=== PATIENT | male | born 1995 | race Caucasian/White ===

== ENCOUNTER 2019-08-02 23:38 | Emergency (ER) | payer BC ==
[2019-08-03 00:10] VITALS: BP 122/83; PULSE 78; RESP 18; TEMP 98.2
[2019-08-03] MEDS ORDERED: DIPH,PERTUS(ACELL)TETVAC-LF 0.5 ML VIAL IM ONE (00:48)
--- NOTE | 2019-08-03 00:49 | ED ---
Wound/Laceration HPI - General Chief Complaint: Wound/Laceration Stated Complaint: Lt finger laceration Time Seen by Provider: 08/03/19 00:30 Source: patient Mode of arrival: ambulatory Limitations: no limitations - History of Present Illness Initial Comments: 23-year-old male patient presents to the emergency department today for evaluation of laceration to the right index finger. Patient states he was cooking when he slipped and cut his knuckle with a knife. Patient is unsure when his last tetanus vaccine was given. He was able to get the bleeding under control. Patient denies any difficulty with range of motion to the finger. Denies any numbness or tingling. Denies any other injuries. - Related Data Allergies Allergy/AdvReac Type Severity Reaction Status Date / Time No Known Allergies Allergy Verified 08/03/19 00:09 Review of Systems ROS Statement: Those systems with pertinent positive or pertinent negative responses have been documented in the HPI. ROS Other: All systems not noted in ROS Statement are negative. Past Medical History Past Medical History: No Reported History History of Any Multi-Drug Resistant Organisms: None Reported Past Surgical History: No Surgical Hx Reported Past Psychological History: Schizophrenia Smoking Status: Never smoker Past Alcohol Use History: None Reported Past Drug Use History: None Reported General Exam Limitations: no limitations General appearance: alert, in no apparent distress, other (This is a well- developed, well-nourished adult male patient in no acute distress. Vital signs upon presentation are temperature 98.2F, pulse 78, respirations 18, blood pressure 122/83, pulse ox 99% on room air.) ENT exam: Present: normal exam, normal oropharynx, mucous membranes moist Respiratory exam: Present: normal lung sounds bilaterally. Absent: respiratory distress, wheezes, rales, rhonchi, stridor Cardiovascular Exam: Present: regular rate, normal rhythm, normal heart sounds. Absent: systolic murmur, diastolic murmur, rubs, gallop, clicks Extremities exam: Present: full ROM, normal capillary refill, other (Patient had skin of the avulsion injury to the right index finger over the PIP joint. Breathing is controlled. The patient is full range of motion. Skin is otherwise pink, warm, dry. Cap refills less than 3 seconds. Radial pulses 2+ and equal bilaterally.). Absent: normal inspection, tenderness, pedal edema, joint swelling, calf tenderness Neurological exam: Present: alert, oriented X3, CN II-XII intact Psychiatric exam: Present: normal affect, normal mood Skin exam: Present: warm, dry, intact, normal color. Absent: rash Course Vital Signs 08/03/19 00:06 Temperature 98.2 F Pulse Rate 78 Respiratory 18 Rate Blood Pressure 122/83 O2 Sat by Pulse 99 Oximetry Medical Decision Making - Medical Decision Making 23-year-old male patient presented to the emergency department today for evaluation of laceration to the right index finger. Physical examination did reveal an avulsion type injury over the PIP joint on the right index finger. Bleeding is under control. Patient is neurovascularly intact. Wound was cleansed and dressed by nursing staff. We did update tetanus vaccine. He'll be discharged to follow-up with his primary care physician for recheck in 1-2 days. Return parameters were discussed in detail. He verbalizes understanding and agrees with this plan. Disposition Clinical Impression: Avulsion of skin of finger Disposition: HOME SELF-CARE Condition: Good Instructions (If sedation given, give patient instructions): Skin Avulsion (ED) Additional Instructions: Keep wound clean and dry. Keep covered while working. Monitor for signs of infection including but not limited to redness, swelling, drainage of pus, fever, or chills. Return to the emergency department immediately for any new, worsening, or concerning symptoms. Is patient prescribed a controlled substance at d/c from ED?: No Referrals: None,Stated [Primary Care Provider] - 1-2 days Time of Disposition: 00:49
== END 2019-08-03 01:05 | disposition home or self-care (01) ==
LOC: EC 23:38
DX: S61.210A Laceration without foreign body of right index finger without damage to nail, initial encounter (principal); Z23 Encounter for immunization; W01.118A Fall on same level from slipping, tripping and stumbling with subsequent striking against other sharp object, initial encounter; Y93.G3 Activity, cooking and baking
CPT/HCPCS: 90471; 90715; 99282

== ENCOUNTER 2023-08-25 17:24 | Emergency (ER) | payer BC, OTHER ==
[2023-08-25 17:39] VITALS: TEMP 98
[2023-08-25] MEDS ORDERED: ACETAMINOPHEN TAB 500 MG TAB PO STA (20:49)
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
[2023-08-25 23:29] VITALS: BP 128/61; PULSE 94; RESP 17
== END 2023-08-25 23:19 | disposition home or self-care (01) ==
LOC: EC 17:24
DX: M25.511 Pain in right shoulder (principal); V18.0XXA Pedal cycle driver injured in noncollision transport accident in nontraffic accident, initial encounter; Y93.55 Activity, bike riding
CPT/HCPCS: 70450; 72125; 72131; 99284

== ENCOUNTER 2024-04-11 12:39 | Emergency (ER) | payer BC ==
--- NOTE | 2024-04-11 13:04 | ED ---
ENT HPI - General Chief complaint: ENT Stated complaint: Pain in R side of jaw Time Seen by Provider: 04/11/24 12:58 Source: patient, RN notes reviewed Mode of arrival: ambulatory Limitations: no limitations - History of Present Illness Initial comments: This is a 28-year-old male presents emergency department chief complaint of right-sided jaw pain. Patient states that yesterday evening he was playing dungeons and dragons where he creates a lot of focal sounds when he opened his jaw on felt a popping sensation. Patient states that he has pain in his chest at this time. He denies difficulty chewing, paresthesias, tenderness, decrease in hearing. He denies dental pain, pain with movement, nausea, vomiting, fevers. That he took 2 Tylenol this morning which aided in some relief. - Related Data Previous Rx's Medication Instructions Recorded Ibuprofen [Motrin] 600 mg PO Q8HR PRN #30 tab 04/11/24 Allergies Allergy/AdvReac Type Severity Reaction Status Date / Time No Known Allergies Allergy Verified 04/11/24 12:43 Review of Systems ROS Statement: Those systems with pertinent positive or pertinent negative responses have been documented in the HPI. ROS Other: All systems not noted in ROS Statement are negative. Past Medical History Past Medical History: No Reported History History of Any Multi-Drug Resistant Organisms: None Reported Past Surgical History: No Surgical Hx Reported Past Psychological History: Schizophrenia Smoking Status: Never smoker Past Alcohol Use History: Occasional Past Drug Use History: None Reported General Exam Limitations: no limitations General appearance: alert, in no apparent distress Head exam: Present: atraumatic, normocephalic, normal inspection Eye exam: Present: normal appearance, PERRL, EOMI. Absent: scleral icterus, conjunctival injection, periorbital swelling ENT exam: Present: normal exam, mucous membranes moist, other (Pain at the right TMJ, no crepitus or malalignment) Neck exam: Present: normal inspection. Absent: tenderness, meningismus, lymphadenopathy Respiratory exam: Present: normal lung sounds bilaterally. Absent: respiratory distress, wheezes, rales, rhonchi, stridor Cardiovascular Exam: Present: regular rate, normal rhythm, normal heart sounds. Absent: systolic murmur, diastolic murmur, rubs, gallop, clicks GI/Abdominal exam: Present: soft, normal bowel sounds. Absent: distended, t enderness, guarding, rebound, rigid Extremities exam: Present: normal inspection, full ROM, normal capillary refill. Absent: tenderness, pedal edema, joint swelling, calf tenderness Back exam: Present: normal inspection Neurological exam: Present: alert, oriented X3, CN II-XII intact Psychiatric exam: Present: normal affect, normal mood Skin exam: Present: warm, dry, intact, normal color. Absent: rash Course Vital Signs 04/11/24 04/11/24 12:41 13:50 Temperature 98.4 F 97.9 F Pulse Rate 70 86 Respiratory 16 18 Rate Blood Pressure 133/90 146/80 O2 Sat by Pulse 97 97 Oximetry Medical Decision Making - Medical Decision Making Was pt. sent in by a medical professional or institution (, PA, DOG BARBER, urgent care, hospital, or fci...) When possible be specific @ -No Did you speak to anyone other than the patient for history (EMS, parent, family, police, friend...)? What history was obtained from this source @ -No Did you review nursing and triage notes (agree or disagree)? Why? @ -I reviewed and agree with nursing and triage notes Were old charts reviewed (outside hosp., previous admission, EMS record, old EKG, old radiological studies, urgent care reports/EKG's, fci records)? Report findings @ -No old charts were reviewed Differential Diagnosis (chest pain, altered mental status, abdominal pain women, abdominal pain men, vaginal bleeding, weakness, fever, dyspnea, syncope, headache, dizziness, GI bleed, back pain, seizure, CVA, palpatations, mental health, musculoskeletal)? @ -TMJ pain, overuse of jaw, sprain, this list is not all inclusive EKG interpreted by me (3pts min.). @ -None X-rays interpreted by me (1pt min.). @ -None done CT interpreted by me (1pt min.). @ -None done U/S interpreted by me (1pt. min.). @ -None done What testing was considered but not performed or refused? (CT, X-rays, U/S, labs)? Why? @ -History was considered but deferred at this time due to patient's physical exam benign, patient is in agreement with this. What meds were considered but not given or refused? Why? @ -None Did you discuss the management of the patient with other professionals (professionals i.e. DrDulce, PA, DOG BARBER, lab, RT, psych nurse, social media marketing analyst, chart collector, teacher, police officer crime prevention, bilingual patient support caseworker)? Give summary @ -No Was smoking cessation discussed for >3mins.? @ -No Was critical care preformed (if so, how long)? @ -No Were there social determinants of health that impacted care today? How? (Homelessness, low income, unemployed, alcoholism, drug addiction, transportation, low edu. Level, literacy, decrease access to med. care, retirement, rehab)? @ -No Was there de-escalation of care discussed even if they declined (Discuss DNR or withdrawal of care, Hospice)? DNR status @ -No What co-morbidities impacted this encounter? (DM, HTN, Smoking, COPD, CAD, Cancer, CVA, ARF, Chemo, Hep., AIDS, mental health diagnosis, sleep apnea, morbid obesity)? @ -None Was patient admitted / discharged? Hospital course, mention meds given and route, prescriptions, significant lab abnormalities, going to OR and other pertinent info. @ -28-year-old male with right-sided jaw pain. On examination patient jaw noted to be aligned, no crepitus on movement or malalignment. Discussion that symptoms are likely secondary to a sprain or overuse. He will be provided with a shot of Toradol here and a prescription for Motrin as needed. Recommend the patient uses warm compresses. Return parameters discussed with the patient. Stable for discharge. Case discussed with Dr. Fajardo Undiagnosed new problem with uncertain prognosis? @ -No Drug Therapy requiring intensive monitoring for toxicity (Heparin, Nitro, Insulin, Cardizem)? @ -No Were any procedures done? @ -No Diagnosis/symptom? @ -jaw pain Acute, or Chronic, or Acute on Chronic? @ -Acute Uncomplicated (without systemic symptoms) or Complicated (systemic symptoms)? @ -uncomplicated Side effects of treatment? @ -No Exacerbation, Progression, or Severe Exacerbation? @ -No Poses a threat to life or bodily function? How? (Chest pain, USA, [place], pneumonia, PE, COPD, DKA, ARF, appy, cholecystitis, CVA, Diverticulitis, Homicidal, Suicidal, threat to staff... and all critical care pts) @ -No Disposition Clinical Impression: Jaw pain Narrative: Return to the emergency department symptoms worsen or not improve. Take ibuprofen as needed for pain. Use warm compresses. Disposition: HOME SELF-CARE Condition: Good Prescriptions: Ibuprofen [Motrin] 600 mg PO Q8HR PRN #30 tab PRN Reason: Pain Is patient prescribed a controlled substance at d/c from ED?: No Referrals: None,Stated [Primary Care Provider] - 1-2 days Time of Disposition: 13:12
[2024-04-11] MEDS: KETOROLAC 15 MG/ML 1 ML VIAL IM STA (13:21)
[2024-04-11 14:08] VITALS: BP 146/80; PULSE 86; RESP 18; TEMP 97.9
== END 2024-04-11 14:17 | disposition home or self-care (01) ==
LOC: EC 12:39
DX: R68.84 Jaw pain (principal)
CPT/HCPCS: 99283; 96372; J1885

== ENCOUNTER 2024-07-03 15:01 | Emergency (ER) | payer OTHER ==
[2024-07-03] MEDS ORDERED: ACETAMINOPHEN TAB 325 MG TAB ONE (15:56)
--- NOTE | 2024-07-26 14:34 | CT ---
[id number] NICOL MARIE : 1995 EXAM:? CT brain without contrast. CT facial bone. DATE: 07/03/2024 INDICATION: Eye injury. COMPARISON: None, please note PACS downtime occurred during the radiologist interpretation of these i mages with limited priors/reports.. TECHNIQUE: Multiple axial CT images of the brain were obtained without IV contrast. One or more CT do se reduction strategies were utilized during this examination. Total DLP administered was 1402 mGycm. ? TECHNIQUE: Multiple unenhanced axial CT images were obtained of the facial bones soft tissue and bone windows.? Coronal, axial and sagittal reformatted images were also provided in soft tissue and bone windows and submitted for interpretation.? Additional 3-D reformatted images were obtained on a [employer] workstation.? FINDINGS: Extra-axial spaces: No abnormal extra-axial fluid collections. Ventricular system: Within normal limits Cerebral parenchyma: No acute intraparenchymal hemorrhage or mass effect.? The angel-white junction is well differentiated.? Cerebellum: Unremarkable. Mass effect: No evidence of midline shift. Intracranial vasculature: unremarkable Soft tissues: Normal. Calvarium/osseous structures: No depressed skull fracture. Paranasal sinuses and mastoid air cells: Clear. Visualized orbits: Orbital contents are intact. The globes are intact. The intraconal fat are maintai amy. No radiopaque foreign body. FINDINGS: There is no evidence of fracture, subluxation, dislocation, or significant soft tissue swelling. The orbital contents are unremarkable. The temporal-mandibular joints appear symmetric. The visualized po rtion of the paranasal sinuses appear clear.?? Calcification within the left submandibular gland measuring 6 x 4 mm. IMPRESSION: 1. No acute intracranial process. 2. No evidence for injury to the globes. The orbits are intact. No fractures. No radiopaque foreign bodies. 3. Calcification within the left submandibular gland. 4. No acute intracranial hemorrhage, mass effect, or midline shift is seen.
== END 2024-07-03 21:49 | disposition home or self-care (01) ==
LOC: EC 15:01
CPT/HCPCS: 70450; 70486; 99283

== ENCOUNTER → 2025-05-21 | Outpatient (CLI) | payer OTHER ==
--- NOTE | 2025-05-21 14:54 | XR ---
EXAMINATION TYPE: XR foot complete RT DATE OF EXAM: 05/21/2025 2:47 PM COMPARISON: None. CLINICAL INDICATION: Male, 29 years old with history of S93.401A, S93.601A, pain TECHNIQUE: XR foot complete RT XX views were obtained. FINDINGS: There is no acute fracture/dislocation evident. The joint spaces appear within normal limits. The o verlying soft tissue appears unremarkable. IMPRESSION: No acute fracture or dislocation. [facility], , 05/21/2025 2:52 PM
--- NOTE | 2025-05-21 14:55 | XR ---
EXAMINATION TYPE: XR ankle complete RT DATE OF EXAM: 05/21/2025 2:47 PM COMPARISON: None. CLINICAL INDICATION: Male, 29 years old with history of S93.401A, S93.601A, TECHNIQUE: XR ankle complete RT, views submitted for evaluation. FINDINGS: There is no evidence for fracture or dislocation. The joint spaces appear within normal limits. The overlying soft tissue appears unremarkable. Ankle mortise is intact. Soft tissues are within normal l imits. IMPRESSION: 1. No evidence for acute fracture. [facility], , 05/21/2025 2:52 PM
== END | disposition home or self-care (01) ==
LOC: RADXRMAIN 14:29
PROVIDERS: ATTEND Emergency Medicine
DX: S93.401A Sprain of unspecified ligament of right ankle, initial encounter (principal); S93.601A Unspecified sprain of right foot, initial encounter

== ENCOUNTER → 2025-06-03 | Outpatient (CLI) | payer OTHER ==
--- NOTE | 2025-06-04 09:08 | MR ---
EXAMINATION TYPE: MR foot RT wo con DATE OF EXAM: 06/03/2025 3:32 PM COMPARISON: Radiographs 05/21/2025 CLINICAL INDICATION: Male, 29 years old with history of S93.401D SPRAIN OF UNSPECIFIED LIGAMENT OF RI GHT A, Rt foot pain and swelling in big toe area and on the top of his foot x2 weeks TECHNIQUE: Multiplanar, multisequence images of the right foot were obtained without IV contrast. FINDINGS: Prominent dorsal soft tissue swelling. Some additional scattered plantar muscular soft tissue edema. Extensive bone bruises across the TMT joint articulations corresponding to the Lisfranc ligament comp macey. There is an associated minimal incomplete fracture at the cuneiform attachment of the interosseo us portion of the main Lisfranc ligament, axial series 701 image 15. Lisfranc ligament is poorly defi amy though with some dorsal fibers visualized on coronal series 601 image 31. Some increased signal along the Proteus longus insertion at the base of the first metatarsal suggesti ng contusion. Some interstitial tearing is present within the peroneus longus at the lateral hindfoot with some associated tenosynovial fluid. Tibiotalar and subtalar joints are intact. Small delineation to the Achilles tendon. Plantar fascia i s intact. There are no other acute or healing fractures seen. IMPRESSION: 1. Prominent dorsal soft tissue swelling with underlying grade 2 sprains of the Lisfranc ligament com plex and extensive midfoot bone bruising. The main Lisfranc ligament is poorly defined but with some dorsal fibers visualized on coronal series. An incomplete cortical fracture involves the cuneiform in sertion of the main Lisfranc ligament. 2. Contusion of the peroneus longus insertion plantar midfoot. Small interstitial tears of the tendon at the lateral hindfoot with mild tenosynovitis. [facility], , 06/04/2025 9:05 AM
== END | disposition home or self-care (01) ==
LOC: RADMRIMAIN 14:34
PROVIDERS: ATTEND Emergency Medicine
DX: S93.401D Sprain of unspecified ligament of right ankle, subsequent encounter (principal); S93.601D Unspecified sprain of right foot, subsequent encounter; M65.971 Unspecified synovitis and tenosynovitis, right ankle and foot

== ENCOUNTER 2025-06-20 10:27 | Day surgery (SDC) | payer BC, OTHER ==
[2025-06-16 10:15] VITALS: BMI 30.1
[2025-06-20] MEDS: IV FLUID CONTINUATION 1,000 ML IV ONE (11:03)
[2025-06-20] MEDS: LACTATED RINGERS 1,000 ML IV ONE (11:03)
[2025-06-20] MEDS: DEXAMETHASONE SOD PHOSPHATE 4 MG/ML 1 ML VIAL IVP STA (11:56)
[2025-06-20] MEDS: ONDANSETRON 4 MG/2 ML VIAL IVP STA (11:56)
[2025-06-20] MEDS: MIDAZOLAM 2 MG/2 ML VIAL IVP PRN (12:04)
--- NOTE | 2025-06-20 12:26 | P.ANPRN ---
Procedure Note - Anesthesia - Nerve Block Performed Right Popliteal Single Time Out Performed: Yes Date of Procedure: 06/20/25 Procedure Start Time: 12:03 Procedure Stop Time: 12:08 Location of Patient: PreOp Indication: Acute Post-Operative Pain, Requested by Surgeon Sedation Type: Sedate with meaningful contact maintained Preparation: Sterile Prep, Sterile Dressing Position: Left Lateral Catheter: None Needle Types: Facet Needle Gauge: 20 Ultrasound used to visualize needle placement: Yes Ultrasound used to observe medication spread: Yes Injectate: 0.5% Ropivacaine (see comment for volume) (30 ml + decadron 4 mg) Blood Aspirated: No Pain Paresthesia on Injection Noted: No Resistance on Injection: Normal Image Stored and Saved: Yes Events: Uneventful and Well Tolerated
[2025-06-20] MEDS ORDERED: ROPIVACAINE 5 MG/ML 30 ML VIAL ONE (13:01)
[2025-06-20] MEDS ORDERED: LIDOCAINE 1% INJ 10MG/ML (20 ML MDV) ONE (13:01)
[2025-06-20] MEDS ORDERED: fentaNYL (PF) 50 MCG/ML 2 ML AMP ONE (13:01)
[2025-06-20] MEDS ORDERED: PROPOFOL 10 MG/ML 20 ML VIAL IV ONE (13:01)
[2025-06-20] MEDS ORDERED: DEXAMETHASONE SOD PHOSPHATE 4 MG/ML 1 ML VIAL ONE (13:01)
[2025-06-20 14:36] VITALS: TEMP 97.5
--- NOTE | 2025-06-20 14:45 | P.OP ---
Date of Procedure: 06/20/25 Preoperative Diagnosis: Tarsometatarsal joint dislocation right foot Postoperative Diagnosis: Same Procedure(s) Performed: 1. Open reduction with internal fixation right tarsometatarsal joint dislocation 2. Intercuneiform arthrodesis right foot Implants: Tia 3.7 and 4.3 mm stainless screws Lometa Augment Anesthesia: PRABHA Surgeon: Meir Shrestha Estimated Blood Loss (ml): 5 Pathology: none sent Condition: stable Disposition: PACU Description of Procedure: Prior to the patient being brought to the op room, anesthesia administered a nerve block on the right lower extremity. The patient is brought to the op room placed on table supine position. Timeout was taken to confirm correct patient identifiers, correct laterality of surgery, and correct procedure. Once all staff in the room was in agreement timeout, the patient is placed under general esthesia. A well-padded tourniquet was placed on the right calf and a bump beneath the right hip to internally rotate the right leg. Right foot was prepped and draped usual manner. The foot was exsanguinated and the tourniquet plated to 250 mmHg. Using direct fluoroscopic visualization, a metallic marker was used to identify the intercuneiform joint and the articulation between the medial cuneiform and second metatarsal base. Using live fluoroscopy, stress testing of the Lisfranc articulation was done. There was significant gapping and instability noted between the medial cuneiform and second metatarsal base as well as between the medial and intermediate cuneiforms. A lazy S incision was made over this area. It was bluntly dissected through the subcutaneous layer careful to identify avoiding retracting neurovascular structures and cauterize any bleeding vessels. Blunt dissection was continued through the fascia. The extensor hallucis longus tendon was identified and retracted medially. Blunt dissection was continued down to the joint capsule overlying the area of interest. An incision was made through the joint capsule between the medial and intermediate cuneiforms as well as the base of the first second metatarsal. A Maybee elevator was inserted into the space to remove and free any soft tissue. Then a 2 mm rotary bur was inserted and used to remove cartilaginous and bony material from the conjoining surfaces of the medial and intermediate cuneiform as well as the medial cuneiform and second metatarsal base. Once that was completed the area was thoroughly irrigated and suctioned to remove any of the bony debris. Through the same dorsal incision blunt dissection was done over the dorsal aspect of the second metatarsal to allow access to the lateral side of the base. The hook portion of the Lisfranc reduction clamp was placed around to the lateral aspect of the second metatarsal base. The second portion of the jig was attached to the first and the sharp spikes of the cuneiform portion of the jig were inserted just into the skin. Fluoroscopy was used to adjust the position of these wires and then once satisfactory the jig was clamped to sync the wires in the medial cuneiform and stabilize the structure. Fluoroscopic imaging showed correct trajectory for the Lisfranc screw. The clamp was then loosened and the augment injected between the bony surfaces for arthrodesis. Then the clamp was retightened and then fully tightened to compress the those bony areas. Fluoroscopy confirmed maintained alignment and correction. A wire was placed through the jig and advanced to the hook on the second metatarsal base. Under drilling was performed through the lateral cortex of the second metatarsal base. Over drilling was performed until the medial side of the base of the second metatarsal was just breached. The wire was removed and a screw inserted and tightened. This allowed for compression across the Lisfranc articulation. There was a excellent bony purchase from the screw. It was placed through all the cortices and exited out just through the lateral cortex of the base of second metatarsal. At that point the jig was removed. The same guidewire was inserted just proximal to the for screw for intercuneiform compression. The wire was placed and position was checked under fluoroscopy. Similar under drilling and over drilling were done for lag technique. A larger screw was inserted which also achieved excellent bone purchase and compression across the inner cuneiform articulation. The same stress testing was performed once both screws were tightened. Live fluoroscopy showed no instability between the cuneiforms of the second metatarsal base and medial cuneiform. All wounds were thoroughly irrigated with antibiotic saline. Subcutaneous closure was done with 4-0 Monocryl. Skin closure was done with 3-0 nylon. Arthrex jumpstart and dry sterile dressing applied to the right foot. The tourniquet was released and capillary refill returned to all digits on the foot. Then the patient was placed in a well-padded, well molded plaster posterior mold/sugar-tong splint. The ankle and foot were held neutral position till the splint was dried. Then anesthesia was reversed and the patient was taken recovery vital signs stable.
[2025-06-20] MEDS: HYDROmorphone 0.5 MG/0.5 ML SYRINGE IVP ONE (15:05)
[2025-06-20 15:29] VITALS: RESP 16
[2025-06-20] MEDS: HYDROcodone/APAP 5-325MG 1 EACH TAB PO ONE (16:45)
[2025-06-20 17:04] VITALS: BP 125/84; PULSE 88
== END 2025-06-20 17:38 | disposition home or self-care (01) ==
LOC: OR 10:27
PROVIDERS: ATTEND Podiatrist
DX: S93.324A Dislocation of tarsometatarsal joint of right foot, initial encounter (principal); G89.18 Other acute postprocedural pain; F17.200 Nicotine dependence, unspecified, uncomplicated; X58.XXXA Exposure to other specified factors, initial encounter
CPT/HCPCS: 64445